=== PATIENT | female | born 1955 | race Caucasian/White ===

== ENCOUNTER 2017-11-04 16:30 | Outpatient (CLI) | payer MEDICARE | END 2017-11-04 16:31 | disposition home or self-care (01) | LOC: BICRAD 16:30 | PROVIDERS: ATTEND Family Medicine | DX: J44.9 Chronic obstructive pulmonary disease, unspecified (principal); R05 Cough; I51.7 Cardiomegaly; R91.8 Other nonspecific abnormal finding of lung field | CPT/HCPCS: 71046 ==

== ENCOUNTER 2021-07-19 14:17 | Outpatient (CLI) | payer MEDICARE | END 2021-07-19 14:18 | disposition home or self-care (01) | LOC: BICRAD 14:17 | PROVIDERS: ATTEND Family Medicine | DX: R05 Cough (principal) | CPT/HCPCS: 71046 ==

== ENCOUNTER 2023-01-22 10:50 | Emergency (ER) | payer MEDICARE ==
[~2023-01-22 10:50] MED LIST: Iopamidol 370 76% 100 ML VIAL ONE
[2023-01-22] MEDS ORDERED: Ondansetron PF 4 MG/2 ML Vial ONE (11:32)
[2023-01-22] MEDS ORDERED: Morphine 4 MG/ML VIAL ONE (11:32)
[2023-01-22 11:35] LABS: #Eosinphils 0.2 thou/uL (0.0-0.7); #Lymphocytes 1.4 thou/uL (1.20-3.40); #Monocytes 0.5 thou/uL (0.11-0.59); #Neutrophils 4.9 thou/uL (1.40-6.50); %Basophils 0.6 % (0.0-1.0); %Eosinophils 2.2 % (0.0-10.0); %Lymphocytes 19.8 % (21.0-51.0); %Monocytes 7.6 % (0.0-10.0); %Neutrophils 69.7 % (42.0-75.0); Hemoglobin 14.3 g/dL (12.0-16.0); Mean Corpuscular HGB CONC 32.7 g/dL (32.0-36.0); Mean Corpuscular Hemoglobin 33.2 pg (27.0-31.0); Mean Platelet Volume 7.6 fL (7.4-10.4); Platelet Count 189 10x3/uL (130-400); RBC Distribution Width 11.9 % (11.5-14.5)
[2023-01-22 11:59] LABS: Bacteria/HPF 4+ HPF (None Seen); Bilirubin Negative (Negative); Blood, Urine 2+ (Negative); Glucose, Urine (Dipstick) Normal (Negative); Ketone, Urine Trace mg/dL (Negative); Leukocyte 500 Leu/uL (Negative); Nitrite 2+ (Negative); Protein, Urine (Dipstick) 50 mg/dL (Neg-Trace); RBC/HPF 21-50 HPF (0-3); Specific Gravity, Urine 1.014 (1.002-1.036); Urobilinogen Normal mg/dL (Less than 2); WBC/HPF Greater than 50 HPF (0-3)
[2023-01-22 12:00] LABS: ALT (SGPT) 16 U/L (8-55); AST (SGOT) 22 U/L (5-34); Albumin 3.9 g/dL (3.4-4.8); Alkaline Phosphatase 72 U/L (40-110); Anion Gap 14 mmol/L (10-20); BUN (Urea Nitrogen) 7 mg/dL (9.8-20.1); Bilirubin, Total 0.7 mg/dL (0.2-1.2); CK (CPK) 36 U/L (29-168); Calc. Creatinine Clearance 0 mL/min (70-130); Carbon Dioxide 26 mmol/L (23-31); Chloride 101 mmol/L (98-107); Estimated GFR 90; Globulin 3.5 g/dL (2.4-3.5); Glucose 108 mg/dL (80-115); Lipase 9 U/L (8-78); Protein, Total 7.4 g/dL (5.8-8.1); Sodium 137 mmol/L (136-145)
[2023-01-22 12:01] LABS: Clarity Turbid (Clear)
[2023-01-22] MEDS ORDERED: cefTRIAXone (ROCEPHIN) 1 GM VIAL ONE (12:37)
== END 2023-01-22 13:32 | disposition home or self-care (01) ==
LOC: ERS 10:50
DX: N30.00 Acute cystitis without hematuria (principal); I25.10 Atherosclerotic heart disease of native coronary artery without angina pectoris; I10 Essential (primary) hypertension; J44.9 Chronic obstructive pulmonary disease, unspecified; Z79.899 Other long term (current) drug therapy
CPT/HCPCS: 74177; 80053; 81003; 81015; 82550; 83605; 83690; 84484; 85025; 93005; 96361; 96365; 96375; J0696; J2270; J2405; Q9967

== ENCOUNTER 2023-03-07 14:11 | Outpatient (CLI) | payer MEDICARE | END 2023-03-07 14:12 | disposition home or self-care (01) | LOC: BICRAD 14:11 | PROVIDERS: ATTEND Student in an Organized Health Care Education/Training Program | DX: M47.26 Other spondylosis with radiculopathy, lumbar region (principal); M54.50 Low back pain, unspecified; M46.06 Spinal enthesopathy, lumbar region; M89.38 Hypertrophy of bone, other site; M46.04 Spinal enthesopathy, thoracic region | CPT/HCPCS: 72072; 72100 ==

== ENCOUNTER 2023-05-20 13:19 | Outpatient (CLI) | payer MEDICARE | END 2023-05-20 13:20 | disposition home or self-care (01) | LOC: RAD 13:19 | PROVIDERS: ATTEND Family Medicine | DX: R10.9 Unspecified abdominal pain (principal) | CPT/HCPCS: 74018 ==

== ENCOUNTER 2024-04-26 19:27 | Emergency (ER) | payer MEDICARE, OTHER ==
[2024-04-26 20:40] LABS: #Basophils 0.05 10x3/uL (0.0-0.2); %Basophils 0.7 % (0.0-1.0); %Eosinophils 1.2 % (0.0-10.0); %Lymphocytes 41.1 % (21.0-51.0); %Monocytes 13.9 % (0.0-10.0); %Neutrophils 42.7 % (42.0-75.0); Hematocrit 37.2 % (36.0-47.0); Hemoglobin 13.1 g/dL (12.0-16.0); Mean Corpuscular HGB CONC 35.2 g/dL (32.0-36.0); Mean Corpuscular Hemoglobin 33.2 pg (27.0-31.0); Mean Corpuscular Volume 94.4 fL (78.0-98.0); Mean Platelet Volume 9.6 fL (7.4-10.4); Platelet Count 185 10x3/uL (130-400); RBC Distribution Width 12.8 % (11.5-14.5); Red Blood Cell (RBC) Count 3.94 mill/uL (4.20-5.40)
[2024-04-26 20:59] LABS: INR-International Normal Ratio 1.2
[2024-04-26 21:00] LABS: Alcohol 208.2 mg/dL (Less than 10); PTT 35.6 sec (22.9-36.1)
[2024-04-26 21:02] LABS: ALT (SGPT) 15 U/L (8-55); AST (SGOT) 26 U/L (5-34); Albumin 3.3 g/dL (3.4-4.8); Alkaline Phosphatase 66 U/L (40-110); Anion Gap 18 mmol/L (10-20); BUN (Urea Nitrogen) 4 mg/dL (9.8-20.1); Bilirubin, Total 0.4 mg/dL (0.2-1.2); Calc. Creatinine Clearance 0 mL/min (70-130); Calcium 8.8 mg/dL (7.8-10.44); Carbon Dioxide 27 mmol/L (23-31); Chloride 86 mmol/L (98-107); Estimated GFR 97; Glucose 94 mg/dL (80-115); Magnesium 1.8 mg/dL (1.6-2.6); Potassium 3.6 mmol/L (3.5-5.1); Protein, Total 6.3 g/dL (5.8-8.1); Sodium 127 mmol/L (136-145)
[2024-04-26] MEDS ORDERED: Ketorolac Tromethamine 30 MG (1 mL) VIAL ONE (21:02)
[2024-04-26 21:08] LABS: Troponin I 0.011 ng/mL (< 0.028)
== END 2024-04-26 23:54 | disposition home or self-care (01) ==
LOC: ERS 19:27
DX: S51.811A Laceration without foreign body of right forearm, initial encounter (principal); F10.129 Alcohol abuse with intoxication, unspecified; E87.1 Hypo-osmolality and hyponatremia; E04.1 Nontoxic single thyroid nodule; W10.9XXA Fall (on) (from) unspecified stairs and steps, initial encounter; Y90.7 Blood alcohol level of 200-239 mg/100 ml; Z79.01 Long term (current) use of anticoagulants
CPT/HCPCS: 70450; 71045; 72125; 72128; 72131; 73030; 80053; 80307; 83735; 83880; 84100; 84484; 85025; 85610; 85730; 86850; 86900; 86901; 93005; 96374; 99284; J1885; 36415; G0390

== ENCOUNTER 2024-10-25 16:14 | Inpatient (IN) | payer MEDICARE ==
[~2024-10-25 16:14] MED LIST changes: -Iopamidol 370 76% 100 ML VIAL ONE; +Iopamidol-370 76% 500 ML MDV (1 ML CHARGE) ONE
[2024-10-25 17:23] LABS: #Basophils Less than 0.03 10x3/uL (0.0-0.2); %Basophils 0.3 % (0.0-1.0); %Lymphocytes 15.2 % (21.0-51.0); %Monocytes 8.4 % (0.0-10.0); %Neutrophils 74.6 % (42.0-75.0); Hematocrit 36.1 % (36.0-47.0); Mean Corpuscular HGB CONC 33.2 g/dL (32.0-36.0); Mean Corpuscular Hemoglobin 33.1 pg (27.0-31.0); Mean Corpuscular Volume 99.7 fL (78.0-98.0); Mean Platelet Volume 10.1 fL (7.4-10.4); Platelet Count 156 10x3/uL (130-400); RBC Distribution Width 13.6 % (11.5-14.5); Red Blood Cell (RBC) Count 3.62 mill/uL (4.20-5.40)
[2024-10-25] MEDS ORDERED: Azithromycin 250 MG TAB ONE (17:50)
[2024-10-25] MEDS ORDERED: Sodium Chloride 0.9% 100 ML ONE (17:51)
[2024-10-25] MEDS ORDERED: cefTRIAXone (ROCEPHIN) 1 GM VIAL ONE (17:51)
[2024-10-25 17:56] LABS: ALT (SGPT) 18 U/L (8-55); AST (SGOT) 24 U/L (5-34); Albumin 3.1 g/dL (3.4-4.8); Alkaline Phosphatase 80 U/L (40-110); Anion Gap 13 mmol/L (10-20); BUN (Urea Nitrogen) 5 mg/dL (9.8-20.1); Bilirubin, Total 0.8 mg/dL (0.2-1.2); Calc. Creatinine Clearance 0 mL/min (70-130); Carbon Dioxide 28 mmol/L (23-31); Chloride 100 mmol/L (98-107); Estimated GFR 96; Globulin 3.2 g/dL (2.4-3.5); Glucose 93 mg/dL (80-115); Potassium 3.9 mmol/L (3.5-5.1); Protein, Total 6.3 g/dL (5.8-8.1); Sodium 137 mmol/L (136-145)
[2024-10-25 17:58] LABS: Troponin I Less than 0.010 ng/mL (< 0.028)
[2024-10-25] MEDS ORDERED: Acetaminophen 500 MG TAB ONE (18:51)
[2024-10-25] MEDS ORDERED: Furosemide 20 MG (2 mL) VIAL ONE (20:38)
[2024-10-25] MEDS ORDERED: Ondansetron ODT 4 MG TAB PO PRN (21:06)
[2024-10-25] MEDS ORDERED: Nitroglycerin 0.4 MG TAB (25 Tab Bottle) SL PRN (21:16)
[2024-10-25] MEDS ORDERED: hydrALAZINE 20 MG/ML VIAL SLOW IVP PRN (21:17)
[2024-10-25 23:06] LABS: Cardiac Risk 1.7 (Less than 4.5)
[2024-10-26] MEDS: Furosemide 40 MG (4 mL) VIAL SLOW IVP SCH (01:05)
[2024-10-26] MEDS: ALPRAZolam 0.5 MG TAB PO PRN (02:04)
[2024-10-26] MEDS: Losartan 25 MG TAB PO SCH ×2 (02:05→08:17)
[2024-10-26 06:00] LABS: #Basophils Less than 0.03 10x3/uL (0.0-0.2); #Eosinophils Less than 0.03 10x3/uL (0.0-0.7); %Lymphocytes 16.6 % (21.0-51.0); %Monocytes 5.9 % (0.0-10.0); Hematocrit 35.8 % (36.0-47.0); Hemoglobin 12.1 g/dL (12.0-16.0); Mean Corpuscular HGB CONC 33.8 g/dL (32.0-36.0); Mean Corpuscular Hemoglobin 33.2 pg (27.0-31.0); Mean Corpuscular Volume 98.4 fL (78.0-98.0); Mean Platelet Volume 10.1 fL (7.4-10.4); Platelet Count 164 10x3/uL (130-400); RBC Distribution Width 13.2 % (11.5-14.5); Red Blood Cell (RBC) Count 3.64 mill/uL (4.20-5.40)
[2024-10-26 06:17] LABS: Anion Gap 14 mmol/L (10-20); BUN (Urea Nitrogen) 7 mg/dL (9.8-20.1); Calc. Creatinine Clearance 0 mL/min (70-130); Calcium 8.9 mg/dL (7.8-10.44); Carbon Dioxide 30 mmol/L (23-31); Chloride 95 mmol/L (98-107); Estimated GFR 94; Glucose 146 mg/dL (80-115); Potassium 3.5 mmol/L (3.5-5.1); Sodium 135 mmol/L (136-145)
[2024-10-26] MEDS: Mometasone 200 MCG/Formoterol 5 MCG 120 PUFF INHALER INH SCH (07:10)
[2024-10-26] MEDS: Pantoprazole DR 40 MG TAB PO SCH (08:16)
[2024-10-26] MEDS: Apixaban 5 MG TAB PO SCH (08:17)
[2024-10-26] MEDS: Sotalol HCl 80 MG TAB PO SCH (08:17)
[2024-10-26] MEDS: Gabapentin 300 MG CAP PO SCH (08:17)
[2024-10-26] MEDS: Sertraline 100 MG TAB PO SCH (08:17)
[2024-10-26] MEDS: Potassium Chloride 20 MEQ TAB PO SCH ×2 (08:18→21:08)
[2024-10-26] MEDS ORDERED: FLU (Fluad Triv) TS24-25 (65UP)/MF59C/PF 45 MCG/0.5 ML Syringe IM ONE (09:00)
[2024-10-26 10:07] LABS: Magnesium 2.1 mg/dL (1.6-2.6); Phosphorus 2.2 mg/dL (2.3-4.7)
[2024-10-26] MEDS: Atorvastatin Calcium 40 MG TAB PO SCH (21:07)
[2024-10-26] MEDS: PHOS-NAK 1 PKT PACK PO SCH (21:07)
[2024-10-26] MEDS: Acetaminophen 325 MG TAB PO PRN (21:13)
[2024-10-27 03:57] LABS: #Basophils Less than 0.03 10x3/uL (0.0-0.2); %Basophils 0.1 % (0.0-1.0); %Eosinophils 0.5 % (0.0-10.0); %Lymphocytes 26.5 % (21.0-51.0); %Monocytes 11.1 % (0.0-10.0); %Neutrophils 61.6 % (42.0-75.0); Hematocrit 32.5 % (36.0-47.0); Hemoglobin 10.9 g/dL (12.0-16.0); Mean Corpuscular HGB CONC 33.5 g/dL (32.0-36.0); Mean Corpuscular Hemoglobin 32.8 pg (27.0-31.0); Mean Corpuscular Volume 97.9 fL (78.0-98.0); Mean Platelet Volume 10.5 fL (7.4-10.4); Platelet Count 163 10x3/uL (130-400); RBC Distribution Width 13.6 % (11.5-14.5); Red Blood Cell (RBC) Count 3.32 mill/uL (4.20-5.40)
[2024-10-27 04:25] LABS: ALT (SGPT) 25 U/L (8-55); AST (SGOT) 46 U/L (5-34); Albumin 2.9 g/dL (3.4-4.8); Alkaline Phosphatase 78 U/L (40-110); Anion Gap 12 mmol/L (10-20); BUN (Urea Nitrogen) 9 mg/dL (9.8-20.1); Bilirubin, Total 0.3 mg/dL (0.2-1.2); Calc. Creatinine Clearance 0 mL/min (70-130); Calcium 8.9 mg/dL (7.8-10.44); Carbon Dioxide 31 mmol/L (23-31); Chloride 98 mmol/L (98-107); Estimated GFR 95; Globulin 3.1 g/dL (2.4-3.5); Glucose 127 mg/dL (80-115); Phosphorus 2.9 mg/dL (2.3-4.7); Potassium 3.5 mmol/L (3.5-5.1); Sodium 137 mmol/L (136-145)
[2024-10-27] MEDS: Potassium Chloride 20 MEQ TAB PO SCH (08:32)
[2024-10-27 11:20] VITALS: BP 148/67
[2024-10-27 11:30] VITALS: TEMP 97.6
== END 2024-10-27 13:01 | disposition home or self-care (01) | DRG 291 ==
LOC: ERS 16:14 → PCU 21:13 → OBSVTOIN 10-26 17:09
PROVIDERS: ADMIT Family Medicine; ATTEND Family Medicine
DX: I11.0 Hypertensive heart disease with heart failure (principal); I50.23 Acute on chronic systolic (congestive) heart failure; J96.21 Acute and chronic respiratory failure with hypoxia; J44.1 Chronic obstructive pulmonary disease with (acute) exacerbation; I48.91 Unspecified atrial fibrillation; F41.9 Anxiety disorder, unspecified; F32.A Depression, unspecified; I25.10 Atherosclerotic heart disease of native coronary artery without angina pectoris; I16.0 Hypertensive urgency; Z66 Do not resuscitate; Z90.49 Acquired absence of other specified parts of digestive tract; Z95.5 Presence of coronary angioplasty implant and graft; Z79.899 Other long term (current) drug therapy; Z88.5 Allergy status to narcotic agent; Z88.8 Allergy status to other drugs, medicaments and biological substances; Z87.891 Personal history of nicotine dependence; Z79.01 Long term (current) use of anticoagulants; Z99.81 Dependence on supplemental oxygen
CPT/HCPCS: 36415; 71045; 71275; 74177; 80048; 80053; 80061; 83605; 83735; 83880; 84100; 84145; 84443; 84484; 85025; 87040; 87428; 93005; 93306; 94660; 94664; 94760; J0696; J1940; Q9967